=== PATIENT | female | born 1990 | race Caucasian/White ===

== ENCOUNTER → 2019-05-03 17:10 | Observation (INO) ==
[2019-05-03 11:33] LABS: Amylase 64 Units/L (29-103); Lipase 30 Units/L (11-82)
[2019-05-03 12:19] LABS: Basophils % 0.2 %; Eosinophils % 0.1 %; Hematocrit 31.8 % (35.3-44.9); Immature Granulocytes % 1.3 % (0-4); Lymphocytes # 0.6 K/mcL (0.6-4.6); Lymphocytes % 3.3 %; Mean Corpuscular HGB Conc 34.6 g/dL (31.6-35.5); Mean Corpuscular Hemoglobin 31.8 pg (28.0-33.3); Mean Corpuscular Volume 91.9 fL (83.0-100.0); Mean Platelet Volume 11.1 fL (9.4-12.4); Monocytes # 0.4 K/mcL (0.0-1.3); Monocytes % 2.7 %; Neutrophils # 15.2 K/mcL (1.6-8.9); Platelet Count 205 K/mcL (140-400); Red Blood Count 3.46 M/mcL (3.82-4.97); Segmented Neutrophils % 92.4 %; White Blood Count 16.5 K/mcL (4.3-11.1)
[2019-05-03 15:37] LABS: Candida DNA DETECTED (Not Detect); Gardnerella DNA Not Detected (Not Detect); Trichomonas DNA Not Detected (Not Detect)
[~2019-05-03 17:10] MED LIST: Acetaminophen 325 MG TABLET PO ONE; Betamethasone Acet/SodPhos 30 MG/5 ML VIAL IM SCH; NIFEdipine 10 MG CAPSULE PO ONE; Ringers Solution, Lactated 1,000 ML IVC ONE; Ringers Solution, Lactated 1,000 ML IVC SCH; Ringers Solution, Lactated 1,000 ML ONE; Terbutaline 1 MG/ML VIAL SQ ONE; Terconazole Vag SUPP 80 MG SUPP.VAG VG STA
== END | disposition home or self-care (01) ==
LOC: 1NENULAB
PROVIDERS: ADMIT Registered Nurse; ATTEND Registered Nurse

== ENCOUNTER 2019-06-06 01:43 | Inpatient (IN) ==
[~2019-06-06 01:43] MED LIST changes: +*HR* FentaNYL (PF) 100 MCG/2 ML VIAL IVP PRN; -Acetaminophen 325 MG TABLET PO ONE; +Azithromycin 500 MG in 0.9 % Sodium Chloride 250 ML IVPB ONE; -Betamethasone Acet/SodPhos 30 MG/5 ML VIAL IM SCH; +Famotidine 20 MG/2 ML VIAL IVP PRN; +Metoclopramide 10 MG/2 ML VIAL IVP PRN; -NIFEdipine 10 MG CAPSULE PO ONE; +Naloxone 0.4 MG/ML INJ IVP PRN; +Ondansetron 4 MG/2 ML VIAL IVP PRN; -Ringers Solution, Lactated 1,000 ML IVC ONE; -Ringers Solution, Lactated 1,000 ML IVC SCH; -Ringers Solution, Lactated 1,000 ML ONE; -Terbutaline 1 MG/ML VIAL SQ ONE; -Terconazole Vag SUPP 80 MG SUPP.VAG VG STA
[2019-06-06 02:08] LABS: Basophils # 0.1 K/mcL (0.0-0.2); Basophils % 0.3 %; Eosinophils # 0.1 K/mcL (0.0-0.6); Eosinophils % 0.8 %; Hematocrit 34.6 % (35.3-44.9); Hemoglobin 11.5 g/dL (11.5-15.4); Immature Granulocytes % 1.3 % (0-4); Lymphocytes # 2.2 K/mcL (0.6-4.6); Lymphocytes % 14.8 %; Mean Corpuscular HGB Conc 33.2 g/dL (31.6-35.5); Mean Corpuscular Hemoglobin 30.2 pg (28.0-33.3); Mean Corpuscular Volume 90.8 fL (83.0-100.0); Mean Platelet Volume 12.2 fL (9.4-12.4); Monocytes % 6.5 %; Neutrophils # 11.6 K/mcL (1.6-8.9); Platelet Count 197 K/mcL (140-400); Red Blood Count 3.81 M/mcL (3.82-4.97); Red Cell Distribution Width 13.2 % (11.5-14.5); Segmented Neutrophils % 76.3 %; White Blood Count 15.2 K/mcL (4.3-11.1)
[2019-06-06 02:13] LABS: Amphetamine Screen,Urine Negative ng/mL (Cutoff=1000); Barbiturate Screen,Urine Negative ng/mL (Cutoff=200); Benzodiazepines Screen,Urine Negative ng/mL (Cutoff=200); Cannabinoid Screen,Urine Negative ng/mL (Cutoff = 50); Cocaine Screen,Urine Negative ng/mL (Cutoff= 300); Opiate Screen,Urine Negative ng/mL (Cutoff=300); Phencyclidine Screen,Urine Negative ng/mL (Cutoff=25)
[2019-06-06] MEDS ORDERED: Ringers Solution, Lactated 1,000 ML ONE ×3 (05:35→10:33)
[2019-06-06] MEDS ORDERED: *HR* FentaNYL (PF) 100 MCG/2 ML VIAL EP ONE (07:51)
[2019-06-06] MEDS ORDERED: EPHEDrine 50 MG/ML VIAL IVP PRN (07:51)
[2019-06-06] MEDS ORDERED: Bupivacaine-MPF 0.25% 10 ML VIAL EP ONE (07:51)
[2019-06-06] MEDS ORDERED: *HR* FentaNYL (PF) 100 MCG/2 ML VIAL ONE (07:52)
[2019-06-06] MEDS ORDERED: Bupivacaine-MPF 0.25% 10 ML VIAL ONE (07:52)
[2019-06-06] MEDS ORDERED: Epidural Premix (fent/bupiv) 110 ML EP SCH (08:00)
[2019-06-06] MEDS ORDERED: Oxytocin 20 units/ LR 1000 mL 20 UNIT/1,000 ML BAG IVC SCH ×2 (09:45→16:37)
[2019-06-06] MEDS ORDERED: Benzocaine/Menthol 56 GM AEROSOL SPRAY TP PRN (16:37)
[2019-06-06] MEDS ORDERED: Acetaminophen 325 MG TABLET PO PRN (16:37)
[2019-06-06] MEDS: Ibuprofen 600 MG TABLET PO PRN (21:55)
[2019-06-07] MEDS: Ibuprofen 600 MG TABLET PO PRN (08:11)
[2019-06-07] MEDS ORDERED: Prenatal Vit/FA 1 EACH TABLET PO SCH (09:00)
[2019-06-07 09:35] VITALS: BP 104/71
== END 2019-06-07 12:29 | disposition home or self-care (01) | DRG 560 ==
LOC: 1NENULAB → 1NENUOBS 16:29
PROVIDERS: ADMIT Obstetrics & Gynecology; ATTEND Obstetrics & Gynecology